=== PATIENT | male | born 1955 | race Caucasian/White ===

== ENCOUNTER → 2016-09-22 | Day surgery (SDC) | payer OTHER ==
[~2016-09-22] VITALS: Ht 180.3 cm; Wt 96.2 kg
[~2016-09-22] MED LIST: ELIQUIS5 M1 PO; GEMFIBROZIL600 M1 PO; METOPROLOL TART25 M1 PO
--- NOTE | 2016-09-22 13:31 | Operative Report ---
Operative/Inv Procedure Report Surgery Date: 09/22/16 Name of Procedure: Complex cataract extraction right eye with lens implantation Pre-Operative Diagnosis: Age-related complex cataract right eye CF vision Post-Operative Diagnosis: Same Estimated Blood Loss: none Surgeon/Terminal Make Up Operator: EYAD WILLIS,ELIANA Willams Anesthesia: local monitored anesthesi Complications: None Operative/Procedure Note Note: The patient was brought to the operating room standard monitoring equipment was attached the patient was prepped and draped in the usual fashion for intraocular surgery. A lid speculum was placed to retract the lids. The case was begun by making a temporal incision with a 2.4 mm keratome. The eye was stabilized with a Strauss ring during this incision. 1 mL of non-preserved lidocaine was introduced into the anterior chamber to provide anesthesia. The anterior capsule was stained with VisionBlue dye. This was necessary because the lens was completely whitened eliminating the red reflex. The anterior chamber was then filled and deepened with viscoelastic. A curvilinear capsulorrhexis was achieved using a 30-gauge needle and is a cystotome and capsulorrhexis was finished using a Utrata forceps. A second or paracentesis incision was made temporally with a 1 mm MVR blade. The lens was then hydrodissected with balanced salt solution and found to be rotatable. The lens was emulsified using phacoemulsification and a modified four-quadrant cracking technique. The residual cortical material was removed using automated irrigation and aspiration and as much of the anterior capsular rim was cleaned as well as possible. The posterior capsule was cleaned first with the automated machine on a low setting and then manually with a Genaro squeegee. The capsular bag was deepened with viscoelastic. The lens a [Technis 1] 20.5 diopter placed into the bag under direct visualization and rotated so that the haptics were at 12 and 6:00. Viscoelastic was then removed from the eye by flushing it out and then by automated irrigation and aspiration. The eye was pressurized to a normal tone. 1/10 of a cc of vancomycin solution was introduced into the anterior chamber to provide antibiotic prophylaxis. The wounds were sealed by hydrating the stroma adjacent to them and the eye was left at a proper tone after the wounds were checked and found not to be leaking. The lid speculum was removed from the orbit. Antibiotic and steroid drops were placed on the eye and then the eye was shielded. Monitoring equipment was removed from the patient and the patient was removed from the operative suite to the holding area. The patient tolerated the procedure well and will be seen in the office tomorrow.
== END ==
LOC: STS 04:44
DX: H25.89 Other age-related cataract (principal); I48.91 Unspecified atrial fibrillation; Z79.01 Long term (current) use of anticoagulants; I25.10 Atherosclerotic heart disease of native coronary artery without angina pectoris; I10 Essential (primary) hypertension; Z87.891 Personal history of nicotine dependence
CPT/HCPCS: J2250; J2405; V2632